=== PATIENT | female | born 1930 | race Two or more races ===

== ENCOUNTER 2020-06-01 13:13 | Inpatient (IN) | payer MEDICARE ==
[~2020-06-01] VITALS: Ht 152.4 cm; Wt 47.3 kg
--- NOTE | 2020-06-01 11:30 | NUR ---
Telemetry admit from [facility] POPNISRE[facility] admitted to Telemetry unit after SBAR received. Patient oriented to MARIEL RICHTER RN primary RN, 294B, and unit policies regarding patient care and visiting hours. Patient now on continuous telemetry monitoring, tele box # 85 and telemetry reading on arrival to unit is AFib . Patient weighed by bedscale and encouraged to call if they need something. All questions and concerns addressed, patient verbalized understanding. Bed alarm on, bed in lowest position, fall risk band placed. Addendum: 06/02/20 at 2035 by MARIEL RICHTER RN RN Correction on time. Patient was admitted at 23:30 on telemetry unit room number 294B.
[2020-06-01] MEDS ORDERED: ASPirin 81 mg TAB PO ONE (13:30)
[2020-06-01 14:33] LABS: Basophils # (auto) 0.1 10 ^3/uL (0-0.2); Basophils % (auto) 0.8 % (0.0-2.0); Eosinophils # (auto) 0 10 ^3/uL (0-0.8); Eosinophils % (auto) 0.5 % (0.0-7.0); Lymphocytes # (auto) 2.5 10 ^3/uL (0.4-5.4); Lymphocytes % (auto) 31.5 % (10.0-50.0); Mean Corpuscular Hemoglobin 28.3 pg (28.0-32.0); Mean Corpuscular Hgb Conc. 32.5 g/dL (32.0-36.0); Monocytes # (auto) 0.7 10 ^3/uL (0-1.3); Monocytes % (auto) 9.4 % (0.0-12.0); Neutrophils # (auto) 4.6 10 ^3/uL (1.6-8.6); Neutrophils % (auto) 57.8 % (37.0-80.0); Platelet Count (auto) 147 10^3/uL (140-450); Red Blood Cells 4.59 10^6/uL (4.0-5.20); Red Cell Distribution Width 15.8 % (11.8-14.3)
[2020-06-01 14:49] LABS: Urine Bacteria NONE SEEN /hpf (None Seen); Urine Blood Negative /uL (Negative); Urine Hyaline Cast FEW /lpf (0 - 2); Urine Mucus FEW (None Seen); Urine Specific Gravity 1.017 (1.001-1.035); Urine WBC 10 /hpf (0 - 5)
[2020-06-01 14:51] LABS: Albumin 3.5 g/dL (3.4-5.0); Anion Gap 4 (5-15); Blood Urea Nitrogen 18 mg/dL (7-18); Calcium 9.8 mg/dL (8.5-10.1); Carbon Dioxide 25 mmol/L (21-32); Chloride 111 mmol/L (98-107); Glucose 95 mg/dL (74-106); Potassium 4.4 mmol/L (3.5-5.1); Sodium 140 mmol/L (136-145)
[2020-06-01 14:54] LABS: Alanine Aminotransferase 43 U/L (13-56); Aspartate Aminotransferase 28 U/L (15-37); BUN/Creatinine Ratio 21.4; GFR African American 82 mL/min; GFR Non-African American 68 mL/min
[2020-06-01 14:59] LABS: Alkaline Phosphatase 82 U/L (45-117); Bilirubin, Total 0.5 mg/dL (0.2-1.0); INR 1.05 (0.9-1.15); Partial Thromboplastin Time 28.9 sec (23.0-31.2); Total Protein 6.7 g/dL (6.4-8.2)
[2020-06-01] MEDS ORDERED: cefTRIAXone 1GM/50ML D5W 50 ML IV ONE (15:00)
[2020-06-01] MEDS ORDERED: METOPROLOL TARTRATE 1MG/1ML-5ML VIAL IV ONE (15:15)
[2020-06-01] MEDS: METOPROLOL TARTRATE 1MG/1ML-5ML VIAL IV SCH ×2 (18:00→22:00)
[2020-06-01] MEDS: AMIODARONE HCL 200 MG TAB PO SCH ×3 (18:00→19:10)
[2020-06-01] MEDS ORDERED: HYDROcodone-ACET 5/325MG TAB PO PRN (18:00)
[2020-06-02 00:50] VITALS: BP 113/71
[2020-06-02] MEDS: METOPROLOL TARTRATE 1MG/1ML-5ML VIAL IV SCH ×3 (02:00→08:46)
[2020-06-02 05:00] VITALS: BP 141/70
--- NOTE | 2020-06-02 05:09 | NUR ---
Attempted to call patient's son Don for admission information but no answer at this time. Will attempt again later
--- NOTE | 2020-06-02 07:25 | NUR ---
Opening Shift Note Assumed care of patient, awake and alert. No S/S of distress/SOB or pain. Bed is low, locked with 2x side rails up. Call light is within reach. Instructed on POC and to call for assist PRN, will continue to monitor for changes Q1hr and PRN.
--- NOTE | 2020-06-02 08:35 | NUR ---
ATTEMPTED TO CALL PT SON ADI, LEFT VOICE MESSAGE NO ANSWER
[2020-06-02 09:00] VITALS: BP 170/95
--- NOTE | 2020-06-02 09:03 | NUR ---
PT UPSET CRYING AND SHAKING MENTIONED HER SON WORKS AT [employer] [phone], LOOKED UP PLACE OF BUSINESS ASKED FOR HER SON, SON UNAVAILABLE BUT HER GRANDDAUGHTER ZACK ANSWERED PHONE, TRANSFERRED TO PT. PT SPOKE TO GRANDDAUGHTER DEESCALATED PT, NEW CELL NUMBER OBTAINED FOR LOKESH JOSHI [phone] STATED HE WILL CALL WHEN BACK IN THE OFFICE. PER GRAND DAUGHTER ZACK SHE FAXED ALL HOME MEDICATIONS TO "[facility]" LAST NIGHT PER ER REQUEST, GAVE ZACK [place] FAX NUMBER TO SEND HOME MEDICATIONS.
--- NOTE | 2020-06-02 09:22 | NUR ---
Contacts ADI CAMPA [phone] SHAHEEN CATALAN [phone]
--- NOTE | 2020-06-02 09:23 | NUR ---
HOME MEDS OBTAINED
[2020-06-02] MEDS ORDERED: MEMA5TAB2 PO (09:46)
[2020-06-02] MEDS ORDERED: LATA0.0019 EACHEYE (09:46)
[2020-06-02] MEDS ORDERED: ROSU40TA PO (09:46)
[2020-06-02] MEDS ORDERED: POTA10TA51 PO (09:46)
[2020-06-02] MEDS ORDERED: BRIM0.159 OP (09:46)
[2020-06-02] MEDS ORDERED: LORA-655 PO (09:46)
[2020-06-02] MEDS ORDERED: ALEN1TAB32 PO (09:46)
[2020-06-02] MEDS ORDERED: EZET10TA22 PO (09:46)
[2020-06-02] MEDS ORDERED: TIMO0.5S66 EACHEYE (09:46)
[2020-06-02] MEDS ORDERED: RIVA4.6D TD (09:46)
[2020-06-02] MEDS ORDERED: ISOS60TA24 PO (09:46)
[2020-06-02] MEDS ORDERED: CARV6.2551 PO (09:46)
[2020-06-02] MEDS ORDERED: TOPI25CA5 PO (09:46)
--- NOTE | 2020-06-02 09:55 | NUR ---
CALLED MD GARCIA REVIEWED HOME MEDS, NEW ORDERS NOTED
[2020-06-02] MEDS: BRIMONIDINE 0.2% OPTH Soln 5ml EACHEYE SCH ×2 (10:00→21:33)
[2020-06-02] MEDS: TIMOLOL MALEATE 0.25 % OPTH SOL 5ML EACHEYE SCH ×2 (10:00→21:33)
[2020-06-02] MEDS: ISOSORBIDE MONONITRATE ER 60 MG TAB PO SCH (10:00)
[2020-06-02] MEDS: POTASSIUM CHL 20 Meq TABLET PO SCH (10:00)
[2020-06-02] MEDS ORDERED: ATORVASTATIN 20 MG TAB PO ONE (10:00)
[2020-06-02] MEDS: MEMANTINE HCL 5 MG TAB PO SCH ×2 (10:00→21:33)
[2020-06-02] MEDS ORDERED: ALENDRONATE SODIUM 10 MG TAB PO SCH (10:00)
[2020-06-02] MEDS: METOPROLOL TARTRATE 50 MG TAB PO SCH (10:00)
[2020-06-02] MEDS ORDERED: hydrALAZINE HCL 10 MG TAB PO PRN (11:15)
[2020-06-02] MEDS: LORazepam 0.5 MG TAB PO PRN (11:24)
--- NOTE | 2020-06-02 11:29 | NUR ---
md laboy called updated on plan of care he wants this nurse to obtain neurology consult notes, discharge summary, and head ct result from [facility]
[2020-06-02 13:00] VITALS: BP 105/53
--- NOTE | 2020-06-02 15:00 | NUR ---
faxed request to kayla moody
[2020-06-02 17:00] VITALS: BP 110/64
--- NOTE | 2020-06-02 18:03 | NUR ---
paged md simmons regarding consult to see patient awaiting call back
--- NOTE | 2020-06-02 19:10 | NUR ---
Opening Shift Note Assumed care of patient, awake and alert. No S/S of distress/SOB or pain. Instructed on POC and to call for assist PRN, will continue to monitor for changes Q1hr and PRN.
[2020-06-02 22:00] VITALS: BP 112/70
[2020-06-02] MEDS ORDERED: LATANOPROST 0.005 % OPTH(EYE) SOL 2.5ML EACHEYE SCH (22:00)
[2020-06-03 05:00] VITALS: BP 142/80
[2020-06-03] MEDS: AMIODARONE HCL 200 MG TAB PO SCH (06:01)
--- NOTE | 2020-06-03 07:03 | NUR ---
Closing shift report Report given to AM nurse. Patient no SOB and no acute distress seen. No complains
[2020-06-03 09:00] VITALS: BP 145/76
[2020-06-03] MEDS: ISOSORBIDE MONONITRATE ER 60 MG TAB PO SCH (09:13)
[2020-06-03] MEDS: POTASSIUM CHL 20 Meq TABLET PO SCH (09:13)
[2020-06-03] MEDS: TIMOLOL MALEATE 0.25 % OPTH SOL 5ML EACHEYE SCH (09:13)
[2020-06-03] MEDS: BRIMONIDINE 0.2% OPTH Soln 5ml EACHEYE SCH (09:13)
[2020-06-03] MEDS: MEMANTINE HCL 5 MG TAB PO SCH (09:14)
[2020-06-03] MEDS: METOPROLOL TARTRATE 50 MG TAB PO SCH (09:14)
[2020-06-03] MEDS: LORazepam 0.5 MG TAB PO PRN (09:16)
[2020-06-03 09:18] LABS: Basophils # (auto) 0 10 ^3/uL (0-0.2); Basophils % (auto) 0.9 % (0.0-2.0); Eosinophils # (auto) 0 10 ^3/uL (0-0.8); Eosinophils % (auto) 0.7 % (0.0-7.0); Hematocrit 37.5 % (36.0-46.0); Hemoglobin 12.3 g/dL (12.2-16.2); Lymphocytes % (auto) 25.8 % (10.0-50.0); Mean Corpuscular Hemoglobin 28.7 pg (28.0-32.0); Mean Corpuscular Hgb Conc. 32.9 g/dL (32.0-36.0); Mean Corpuscular Volume 87.1 fL (80.0-100.0); Monocytes # (auto) 0.4 10 ^3/uL (0-1.3); Monocytes % (auto) 9.2 % (0.0-12.0); Neutrophils # (auto) 2.5 10 ^3/uL (1.6-8.6); Neutrophils % (auto) 63.4 % (37.0-80.0); Platelet Count (auto) 116 10^3/uL (140-450); Red Cell Distribution Width 15.7 % (11.8-14.3); White Blood Cell 3.9 10^3/uL (4.4-10.8)
[2020-06-03 09:35] LABS: Albumin 3.3 g/dL (3.4-5.0); Calcium 9.8 mg/dL (8.5-10.1); Magnesium 2.5 mg/dL (1.6-2.6); Potassium 3.8 mmol/L (3.5-5.1)
[2020-06-03 09:38] LABS: BUN/Creatinine Ratio 22.7; Bilirubin, Total 0.5 mg/dL (0.2-1.0); Cholesterol 124 mg/dL (< 200); HDL Cholesterol 51 mg/dL (40-59); LDL Cholesterol 57 mg/dL (< 100); Total Protein 6.2 g/dL (6.4-8.2); Triglycerides 81 mg/dL (< 150)
--- NOTE | 2020-06-03 12:35 | NUR ---
MD GANDARA ROUNDED ON PATIENT, MESSAGED MD CASTILLO AND MAXIMUS BOTH GAVE CLEARANCE FOR DISCHARGE, PAGED MD MAURICE INQUIRING ON WHEN HE WILL ROUND TO PUT IN DISCHARGE ORDER
--- NOTE | 2020-06-03 13:35 | NUR ---
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
[2020-06-03 14:00] VITALS: BP 147/72
--- NOTE | 2020-06-03 15:08 | NUR ---
pt discharged home all belongings accounted for iv removed tele box sent back to tele room
== END 2020-06-03 17:34 | disposition home or self-care (01) | DRG 309 ==
LOC: ER 13:13 → TELE 13:14 → TELE-WESTW 23:30
PROVIDERS: ADMIT Specialist; ATTEND Specialist
DX: I48.0 Paroxysmal atrial fibrillation (principal); N39.0 Urinary tract infection, site not specified; I48.20 Chronic atrial fibrillation, unspecified; E78.5 Hyperlipidemia, unspecified; I27.20 Pulmonary hypertension, unspecified; Z95.0 Presence of cardiac pacemaker; Z95.2 Presence of prosthetic heart valve; Z90.710 Acquired absence of both cervix and uterus; F03.90 Unspecified dementia, unspecified severity, without behavioral disturbance, psychotic disturbance, mood disturbance, and anxiety; Z79.01 Long term (current) use of anticoagulants; Z79.899 Other long term (current) drug therapy; S06.5X9D Traumatic subdural hemorrhage with loss of consciousness of unspecified duration, subsequent encounter
CPT/HCPCS: 36415; 70450; 71045; 80053; 80061; 81001; 83735; 83880; 84443; 84484; 85025; 85610; 85730; 93005; 99291; G0378; J0696